=== PATIENT | male | born 1970 ===

== ENCOUNTER 2016-10-05 15:06 | Observation (INO) | payer MEDICAID ==
[2016-10-05 15:22] VITALS: BP 149/84; PULSE 65; RESP 16; TEMP 98.8; O2SAT 97
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
[2016-10-05 16:28] LABS: ADD MANUAL DIFF? NO
[2016-10-05 16:55] LABS: ALB/GLOB RATIO 1.3 (1.1-1.8); ALKALINE PHOSPHATASE 67 U/L (38-133); ALT/SGPT 42 U/L (7-56); AST/SGOT 52 U/L (15-59); BILIRUBIN,TOTAL 0.6 mg/dL (0.2-1.3); BLOOD UREA NITROGEN 19 mg/dL (7-21); CALCIUM 9.4 mg/dL (8.4-10.5); CARBON DIOXIDE 28 mmol/L (21-33); CHLORIDE 103 mmol/L (98-107); GFR AFRICAN-AMERICAN > 60; GLUCOSE,RANDOM 116 mg/dL (70-110); SODIUM 138 mmol/L (132-148); TOTAL PROTEIN 7.2 g/dL (5.8-8.3)
[2016-10-05 16:59] LABS: BASO # 0.03 K/mm3 (0.0-2.0); BASO % 0.5 % (0.0-3.0); EOS # 0.2 (0.0-0.7); EOS % 3.6 % (1.5-5.0); GRAN # 4.56 (1.4-6.5); GRAN % 70.8 % (50.0-68.0); HEMATOCRIT 41.6 % (42.0-52.0); LYMPH # 1.3 (1.2-3.4); LYMPH % 19.4 % (22.0-35.0); MEAN CELL VOLUME 83.7 fL (80.0-105.0); MEAN CORPUSCULAR HEMOGLOBIN 29.6 pg (25.0-35.0); MEAN CORPUSCULAR HGB CONC 35.3 g/dl (31.0-37.0); MEAN PLATELET VOLUME 10.6 fl (7.0-11.0); MONO # 0.4 (0.1-0.6); MONO % 5.7 % (1.0-6.0); PLATELET COUNT 205 10^3/uL (120.0-450.0); RED CELL DISTRIBUTION WIDTH 13.3 % (11.5-14.5); WHITE BLOOD COUNT 6.4 10^3/ul (4.5-11.0)
[2016-10-05 17:01] LABS: INR 1.11 (0.93-1.08); PARTIAL THROMBOPLASTIN TIME 27.3 Seconds (23.7-30.8)
[2016-10-05 17:07] LABS: TROPONIN I 0.01 ng/mL
--- NOTE | 2016-10-05 17:46 | CT ---
PROCEDURE: CT HEAD WITHOUT CONTRAST. HISTORY: +LOC COMPARISON: None availableThe. TECHNIQUE: Axial computed tomography images were obtained through the head/brain without intravenous contrast. Radiation dose: Total exam DLP = 869.39 mGy-cm. This CT exam was performed using one or more of the following dose reduction techniques: Automated exposure control, adjustment of the mA and/or kV according to patient size, and/or use of iterative reconstruction technique. FINDINGS: HEMORRHAGE: No acute parenchymal, subarachnoid or extra-axial hemorrhage. BRAIN: No mass effect or edema. No atrophy or chronic microvascular ischemic changes. VENTRICLES: There is mild asymmetry of the lateral ventricles left-sided which is slightly larger than the right felt to represent an anatomic variation. Ventricular and sulcal size are otherwise normal. CALVARIUM: No acute calvarial fractures. PARANASAL SINUSES: There are comminuted fractures of the nasal bones bilaterally likely chronic due to the relative lack of overlying soft tissue swelling. Nadir Visualized paranasal sinuses well-developed and currently well-aerated. No fluid levels seen to suggest acute sinusitis or hemorrhage. Minimal mucosal thickening seen within a few ethmoid air cells. Minor mucosal thickening also seen in the right and left maxillary antrum. MASTOID AIR CELLS: Unremarkable as visualized. No inflammatory changes. OTHER FINDINGS: Orbits and contents unremarkable. IMPRESSION: No acute intracranial hemorrhage.
--- NOTE | 2016-10-06 09:54 | CARD ---
APPROVED REPORT EKG Measurement Heart [id number] <Conclusion> Sinus bradycardia Otherwise normal ECG
== END 2016-10-05 19:42 | disposition home or self-care (01) ==
LOC: ED 15:06 → EROBSV 16:07
PROVIDERS: ADMIT Emergency Medicine; ATTEND Emergency Medicine
DX: F13.239 Sedative, hypnotic or anxiolytic dependence with withdrawal, unspecified (principal); R51 Headache; R55 Syncope and collapse
CPT/HCPCS: 70450; 80053; 80320; 80324; 80345; 80346; 80349; 80353; 80358; 80361; 83992; 84484; 85025; 85610; 85730; 93005; 99285; G0378

== ENCOUNTER 2017-01-10 09:11 | Emergency (ER) | payer MEDICAID ==
[2017-01-10 09:21] VITALS: TEMP 98; BMI 28.8
[2017-01-10] MEDS ORDERED: Sodium Chloride 0.9% 1,000 ML IV STA (09:36)
--- NOTE | 2017-01-10 09:40 | ED PDOC ---
Arrival/HPI - General Chief Complaint: Male Genitourinary Time Seen by Provider: 01/10/17 09:13 - History of Present Illness Narrative History of Present Illness (Text): 01/10/17 09:35 47 y/o M with PMHx of illicit substance abuse (heroin) presents for low back pain. Patient states that he is currently on parole after being released from [facility]. Patient uses heroin regularly and last used 2 days ago. Patient had to provide a clean urine so he decided to take water pills to flush out his urine. Patient took lisinopril 40 mg x 2 and HCTZ 25 mg x 4 two days ago. Towards the end of the day 2 days ago, pt started developing B/L low back pain. No radiation of pain. Pain feels like a cramp. Denies any trauma or heavy lifting. Patient denies having any dysuria, hematuria, abd pain, N/V/D/C, CP, SOB, F/C. Time/Duration: < week Symptom Onset: Sudden Symptom Course: Unchanged Quality: Tightness, Cramping Past Medical History - Provider Review Nursing Documentation Reviewed: Yes - Travel History Have you recently traveled outside [place] w/in the past 3 mons?: No - Infectious Disease Hx of Infectious Diseases: None - Cardiac Hx Cardiac Disorders: Yes Hx Hypertension: Yes - Pulmonary Hx Respiratory Disorders: No - Neurological Hx Neurological Disorder: No - HEENT Hx HEENT Disorder: No - Renal Hx Renal Disorder: No - Endocrine/Metabolic Hx Endocrine Disorders: No - Hematological/Oncological Hx Blood Disorders: No - Integumentary Hx Dermatological Disorder: No - Musculoskeletal/Rheumatological Hx Musculoskeletal Disorders: No - Gastrointestinal Hx Gastrointestinal Disorders: No - Genitourinary/Gynecological Hx Genitourinary Disorders: No - Psychiatric Hx Psychophysiologic Disorder: Yes Hx Anxiety: Yes Hx Bipolar Disorder: Yes Hx Depression: Yes Hx Substance Use: Yes - Anesthesia Hx Anesthesia: No Family/Social History - Physician Review Nursing Documentation Reviewed: Yes Family/Social History: Unknown Family HX Smoking Status: Current Some Days Smoker Hx Alcohol Use: Yes Hx Substance Use: Yes Substance used: heroin Allergies/Home Meds Allergies/Adverse Reactions: Allergies No Known Allergies Allergy (Verified 01/10/17 09:21) Home Medications: Home Meds Medication Instructions Recorded Confirmed Gabapentin [Neurontin] 300 mg PO TID 01/10/17 01/10/17 Risperidone [Risperdal] 1 mg PO DAILY 01/10/17 01/10/17 Review of Systems - Review of Systems Constitutional: Normal. absent: Fatigue, Fevers Eyes: Normal. absent: Vision Changes, Photophobia ENT: Normal. absent: Sore Throat, Rhinorrhea, Sinus Congestion Respiratory: Normal. absent: SOB, Cough, Wheezing Cardiovascular: Normal. absent: Chest Pain, Palpitations, Edema, Calf Pain Gastrointestinal: Normal. absent: Abdominal Pain, Constipation, Diarrhea, Nausea, Vomiting, Hematochezia, Hematemesis Genitourinary Male: Normal. absent: Dysuria, Frequency, Hematuria, Urinary Output Changes Musculoskeletal: Back Pain (low back pain ). absent: Arthralgias, Neck Pain, Joint Swelling Skin: Normal. absent: Rash, Pruritis, Skin Lesions, Laceration Neurological: Normal. absent: Headache, Dizziness, Focal Weakness Endocrine: Normal. absent: Diaphoresis, Polyuria, Polydipsia Hemo/Lymphatic: Normal. absent: Adenopathy, Easy Bleeding, Easy Bruising Physical Exam Vital Signs Reviewed: Yes Vital Signs Temp Pulse Resp BP Pulse Ox 01/10/17 09:20 98.0 F 72 19 128/92 H 100 Temperature: Afebrile Blood Pressure: Normal Pulse: Regular Respiratory Rate: Normal Appearance: Positive for: Well-Appearing, Non-Toxic, Comfortable Pain Distress: Mild Mental Status: Positive for: Alert and Oriented X 3 - Systems Exam Head: Present: Atraumatic, Normocephalic Extroacular Muscles: Present: EOMI Conjunctiva: Present: Normal Mouth: Present: Moist Mucous Membranes Respiratory/Chest: Present: Clear to Auscultation, Good Air Exchange. No: Respiratory Distress, Accessory Muscle Use, Wheezes, Rales, Rhonchi Cardiovascular: Present: Regular Rate and Rhythm, Normal S1, S2. No: Murmurs, Rub, Gallop, Muffled Abdomen: Present: Normal Bowel Sounds. No: Tenderness, Distention, Peritoneal Signs Back: Present: Paraspinal Tenderness (B/L lumbar ). No: CVA Tenderness, Midline Tenderness Upper Extremity: Present: Normal Inspection, NORMAL PULSES. No: Edema Lower Extremity: Present: Normal Inspection, NORMAL PULSES, Normal ROM. No: Edema, CALF TENDERNESS Neurological: Present: GCS=15, Speech Normal Skin: Present: Warm, Dry, Normal Color. No: Rashes Psychiatric: Present: Alert, Oriented x 3, Normal Insight, Normal Concentration Medical Decision Making ED Course and Treatment: 01/10/17 09:43 47 year old M presents for low back B/L after taking lisinopril 40 mg x 2 and HCTZ 25 mg x 4 Will check CBC, CMP, UA and UDS Patient will be given 1 L NS bolus - Lab Interpretations Lab Results: 01/10/17 09:45 01/10/17 10:00 Lab Results 01/10/17 10:30: Urine Color Yellow, Urine Appearance Clear, Urine pH 6.0, Ur Specific [place] 1.025, Urine Protein Negative, Urine Glucose (UA) Negative, Urine Ketones Trace H, Urine Blood Negative, Urine Nitrate Negative, Urine Bilirubin Negative, Urine Urobilinogen 0.2, Ur Leukocyte Esterase Negative 01/10/17 10:00: Sodium 134, Potassium 4.3, Chloride 97, Carbon Dioxide 25, Anion Gap 16, BUN 26 H, Creatinine 1.4, Est GFR ( Amer) > 60, Est GFR ( Non-Af Amer) 55, Random Glucose 133 H, Calcium 9.6, Total Bilirubin 0.5, AST 29 , ALT 35, Alkaline Phosphatase 93, Total Protein 7.4, Albumin 4.4, Globulin 3.0 , Albumin/Globulin Ratio 1.5 01/10/17 09:45: WBC 11.1 H D, RBC 5.89, Hgb 18.0, Hct 49.4, MCV 83.9, MCH 30.6, MCHC 36.4, RDW 13.3, Plt Count 253, MPV 10.8 I have reviewed the lab results: Yes Interpretation: All labs normal - Medication Orders Current Medication Orders: Discontinued Medications Sodium Chloride (Sodium Chloride 0.9%) 1,000 mls @ 999 mls/hr IV .Q1H1M STA Stop: 01/10/17 10:36 Last Admin: 01/10/17 09:48 Dose: 999 mls/hr Disposition/Present on Arrival - Present on Arrival Any Indicators Present on Arrival: No History of DVT/PE: No History of Uncontrolled Diabetes: No Urinary Catheter: No History of Decub. Ulcer: No History Surgical Site Infection Following: None - Disposition Have Diagnosis and Disposition been Completed?: Yes Diagnosis: Flank pain Disposition: HOME/ ROUTINE Disposition Time: 10:58 Patient Plan: Discharge Condition: GOOD Discharge Instructions (ExitCare): Flank Pain (ED) Additional Instructions: please follow up with your doctor/specialist. return to er with worsening symptoms or concerns. Referrals: [facility] [Outside] - Follow up with primary [facility] [Outside] - Follow up with primary Sim Phoenix MD [Staff Provider] - Follow up with primary Marylin Contreras MD [Primary Care Provider] - Follow up with primary Forms: [employer] [employer] [facility] ([place]rainian), WORK NOTE
[2017-01-10 10:02] LABS: MEAN CELL VOLUME 83.9 fl (80.0-105.0); MEAN CORPUSCULAR HEMOGLOBIN 30.6 pg (25.0-35.0); MEAN CORPUSCULAR HGB CONC 36.4 g/dl (31.0-37.0); MEAN PLATELET VOLUME 10.8 fl (7.0-11.0); RBC 5.89 10^6/uL (3.5-6.1); RED CELL DISTRIBUTION WIDTH 13.3 % (11.5-14.5); WHITE BLOOD COUNT 11.1 10^3/ul (4.5-11.0)
[2017-01-10 10:25] LABS: ALB/GLOB RATIO 1.5 (1.1-1.8); ALBUMIN 4.4 g/dL (3.0-4.8); ALT/SGPT 35 U/L (7-56); AST/SGOT 29 U/L (15-59); BLOOD UREA NITROGEN 26 mg/dL (7-21); CALCIUM 9.6 mg/dL (8.4-10.5); GFR AFRICAN-AMERICAN > 60; GFR NON-AFRICAN AMERICAN 55
[2017-01-10 10:49] LABS: URINE BILIRUBIN NEGATIVE (NEGATIVE); URINE BLOOD NEGATIVE (NEGATIVE); URINE GLUCOSE (UA) NEGATIVE (NEGATIVE); URINE LEUKOCYTE ESTERASE NEGATIVE Leu/uL (NEGATIVE); URINE NITRATE NEGATIVE (NEGATIVE); URINE PROTEIN NEGATIVE mg/dL (<30 mg/dL); URINE UROBILINOGEN 0.2 E.U./dL (<1 E.U./dL)
[2017-01-10 10:51] LABS: URINE APPEARANCE CLEAR (CLEAR); URINE COLOR YELLOW (YELLOW)
[2017-01-10 11:14] LABS: BARBITURATES, UR NEGATIVE (NEGATIVE); BENZODIAZEPINES, UR NEGATIVE (NEGATIVE); OPIATES, UR POSITIVE (NEGATIVE); PHENCYCLIDINE, UR NEGATIVE (NEGATIVE)
[2017-01-10 11:15] VITALS: BP 129/73; PULSE 76; RESP 18; O2SAT 98
== END 2017-01-10 11:50 | disposition home or self-care (01) ==
LOC: ED 09:11
DX: R10.9 Unspecified abdominal pain (principal)
CPT/HCPCS: 80053; 80324; 80345; 80346; 80349; 80353; 80358; 80361; 81003; 83992; 85027; 96360; 99284; J7040

== ENCOUNTER 2017-12-15 13:03 | Emergency (ER) | payer MEDICAID, OTHER ==
[2017-12-15 13:03] VITALS: BMI 28.8
--- NOTE | 2017-12-15 13:37 | ED PDOC ---
Arrival/HPI - General Chief Complaint: Substance Abuse Time Seen by Provider: 12/15/17 13:05 Historian: Patient - History of Present Illness Narrative History of Present Illness (Text): 12/15/17 13:36 47 year old male, whose PMH includes hypertension, asthma, and substance abuse, who presents to the emergency department complaining of dizziness s/p taking Percocet. Patient reports he had chronic lower back pain and took somebody else' s Percocet, begabn to drive and felt dizzy which caused him to puller through. Patient states he has never taken Percocet. Patient denies chest pain, shortness of breath, headache, nausea, vomiting, diarrhea, or other complaints. Time/Duration: Prior to Arrival Symptom Onset: Sudden Symptom Course: Unchanged Past Medical History - Provider Review Nursing Documentation Reviewed: Yes - Infectious Disease Hx of Infectious Diseases: None - Cardiac Hx Cardiac Disorders: Yes Hx Hypertension: Yes - Pulmonary Hx Respiratory Disorders: Yes Hx Asthma: Yes - Neurological Hx Neurological Disorder: No - HEENT Hx HEENT Disorder: No - Renal Hx Renal Disorder: No - Endocrine/Metabolic Hx Endocrine Disorders: No - Hematological/Oncological Hx Blood Disorders: No - Integumentary Hx Dermatological Disorder: No - Musculoskeletal/Rheumatological Hx Musculoskeletal Disorders: No - Gastrointestinal Hx Gastrointestinal Disorders: No - Genitourinary/Gynecological Hx Genitourinary Disorders: No - Psychiatric Hx Psychophysiologic Disorder: No Hx Substance Use: Yes - Anesthesia Hx Anesthesia: No Family/Social History - Physician Review Nursing Documentation Reviewed: Yes Family/Social History: Unknown Family HX Smoking Status: Current Some Days Smoker Hx Alcohol Use: Yes Hx Substance Use: Yes Substance used: heroin Allergies/Home Meds Allergies/Adverse Reactions: Allergies No Known Allergies Allergy (Verified 01/10/17 09:21) Home Medications: Home Meds Medication Instructions Recorded Confirmed Gabapentin [Neurontin] 300 mg PO TID 01/10/17 01/10/17 Risperidone [Risperdal] 1 mg PO DAILY 01/10/17 01/10/17 Review of Systems - Physician Review All systems were reviewed & negative as marked: Yes - Review of Systems Respiratory: absent: SOB Cardiovascular: absent: Chest Pain Neurological: Dizziness Physical Exam Vital Signs Reviewed: Yes Vital Signs Temp Pulse Resp BP Pulse Ox 12/15/17 14:43 98.6 F 82 18 132/78 98 12/15/17 13:03 98.5 F 106 H 19 152/109 H 91 L Temperature: Afebrile Blood Pressure: Hypertensive Pulse: Tachycardic Respiratory Rate: Normal Appearance: Positive for: Well-Appearing, Non-Toxic, Comfortable Pain Distress: None Mental Status: Positive for: Alert and Oriented X 3 - Systems Exam Head: Present: Atraumatic, Normocephalic Pupils: Present: PERRL Extroacular Muscles: Present: EOMI Conjunctiva: Present: Normal Respiratory/Chest: Present: Clear to Auscultation, Good Air Exchange. No: Respiratory Distress, Accessory Muscle Use, Wheezes, Decreased Breath Sounds, Rales, Retracting, Rhonchi Cardiovascular: Present: Regular Rate and Rhythm, Normal S1, S2. No: Murmurs Abdomen: Present: Normal Bowel Sounds. No: Tenderness, Distention, Peritoneal Signs, Rebound, Guarding Neurological: Present: GCS=15, CN II-XII Intact, Speech Normal Skin: Present: Warm, Dry, Normal Color. No: Rashes Psychiatric: Present: Alert, Oriented x 3, Normal Insight, Normal Concentration Medical Decision Making ED Course and Treatment: 12/15/17 Impression: 47 year old male with unremarkable physical exam complaining of dizziness s/p taking Percocet tablet from someone else. Plan: -- EKG -- Chest X-ray -- Labs -- Urinalysis -- Reassess and disposition Progress Notes: 12/15/17 14:20 Chest X-ray: Creator : Abigail Blair MD FINDINGS: LUNGS: The lungs are well inflated and clear. PLEURA: No significant pleural effusion identified, no pneumothorax apparent. CARDIOVASCULAR: Normal. OSSEOUS STRUCTURES: No significant abnormalities. VISUALIZED UPPER ABDOMEN: Normal. OTHER FINDINGS: None. IMPRESSION: No active pulmonary disease. 12/15/17 15:35 Reevaluation: On reevaluation the patient feels better and is in no acute distress. I have discussed the results and plan with the patient, who expresses understanding. Patient given the opportunity to ask question, all questions were answered and there is agreement with the plan to discharge the patient home. Patient is stable for discharge and was advised to not take prescribed medication of others. - Lab Interpretations Lab Results: 12/15/17 13:33 12/15/17 13:33 Lab Results 12/15/17 14:10: Urine Opiates Screen Positive H, Urine Methadone Screen Negative , Ur Barbiturates Screen Negative, Ur Phencyclidine Scrn Negative, Ur Amphetamines Screen Negative, U Benzodiazepines Scrn Negative, U Oth Cocaine Metabols Negative, U Cannabinoids Screen Negative 12/15/17 14:10: Urine Color Light yellow, Urine Appearance Clear, Urine pH 6.0, Ur Specific [place] 1.020, Urine Protein Negative, Urine Glucose (UA) Negative, Urine Ketones Negative, Urine Blood Negative, Urine Nitrate Negative, Urine Bilirubin Negative, Urine Urobilinogen 0.2, Ur Leukocyte Esterase Negative 12/15/17 13:33: Sodium 139, Potassium 4.0, Chloride 101, Carbon Dioxide 24, Anion Gap 18, BUN 20, Creatinine 0.9, Est GFR ( Amer) > 60, Est GFR (Non- Af Amer) > 60, Random Glucose 171 H, Calcium 8.4, Magnesium 2.1, Total Bilirubin 0.5, AST 38, ALT 69 H, Alkaline Phosphatase 68, Lactate Dehydrogenase 598, Total Creatine Kinase 302 H, CK-MB (CK-2) 2.1, CK-MB (CK-2) % Cancelled, Troponin I 0.03 D, Total Protein 7.3, Albumin 4.4, Globulin 2.9, Albumin/ Globulin Ratio 1.5 12/15/17 13:33: WBC 7.4 D, RBC 5.22, Hgb 15.5 D, Hct 43.3, MCV 83.0, MCH 29.7 , MCHC 35.8, RDW 13.6, Plt Count 186, MPV 10.4, Gran % 77.8 H, Lymph % (Auto) 14.1 L, [place] % (Auto) 5.4, Eos % (Auto) 2.4, Baso % (Auto) 0.3, Gran # 5.76, Lymph # (Auto) 1.0 L, [place] # (Auto) 0.4, Eos # (Auto) 0.2, Baso # (Auto) 0.02 I have reviewed the lab results: Yes - RAD Interpretation Radiology Orders: 12/15/17 13:35 CHEST PORTABLE [RAD] Stat Emery Wheel Molder: Radiologist - EKG Interpretation Interpreted by ED Physician: Yes Type: 12 lead EKG - Scribe Statement The provider has reviewed the documentation as recorded by the Nayan Chen Provider Scribe Attestation: All medical record entries made by the Scribe were at my direction and personally dictated by me. I have reviewed the chart and agree that the record accurately reflects my personal performance of the history, physical exam, medical decision making, and the department course for this patient. I have also personally directed, reviewed, and agree with the discharge instructions and disposition. Disposition/Present on Arrival - Present on Arrival Any Indicators Present on Arrival: Yes History of DVT/PE: No History of Uncontrolled Diabetes: No Urinary Catheter: No History of Decub. Ulcer: No History Surgical Site Infection Following: None - Disposition Have Diagnosis and Disposition been Completed?: No Diagnosis: Dizziness Disposition: HOME/ ROUTINE Disposition Time: 14:00 Condition: GOOD Discharge Instructions (ExitCare): Dizziness, Nonvertigo, (DC) Additional Instructions: MARY YANEZ, thank you for letting us take care of you today. The emergency medical care you received today was directed at your acute symptoms. If you were prescribed any medication, please fill it and take as directed. It may take several days for your symptoms to resolve. Return to the Emergency Department if your symptoms worsen, do not improve, or if you have any other problems. Please contact your doctor or call one of the physicians/clinics you have been referred to that are listed on the Patient Visit Information form that is included in your discharge packet. Bring any paperwork you were given at discharge with you along with any medications you are taking to your follow up visit. Our treatment cannot replace ongoing medical care by a primary care provider outside of the emergency department. Thank you for allowing the [facility] team to be part of your care today. Do NOT take any medication that is not prescribed to you. Follow up with the clinic or your primary care doctor this week for re- evaluation and further management. Referrals: [facility] [Outside] - Follow up with primary Ellen Mortensen MD [Staff Provider] - Follow up with primary Forms: [employer] (Slovak)
[2017-12-15 13:53] LABS: BASO # 0.02 K/mm3 (0.0-2.0); BASO % 0.3 % (0.0-3.0); EOS # 0.2 (0.0-0.7); EOS % 2.4 % (1.5-5.0); GRAN # 5.76 (1.4-6.5); GRAN % 77.8 % (50.0-68.0); HEMOGLOBIN 15.5 g/dL (14.0-18.0); LYMPH % 14.1 % (22.0-35.0); MEAN CORPUSCULAR HEMOGLOBIN 29.7 pg (25.0-35.0); MEAN CORPUSCULAR HGB CONC 35.8 g/dl (31.0-37.0); MEAN PLATELET VOLUME 10.4 fl (7.0-11.0); MONO # 0.4 (0.1-0.6); MONO % 5.4 % (1.0-6.0); RBC 5.22 10^6/uL (3.5-6.1); RED CELL DISTRIBUTION WIDTH 13.6 % (11.5-14.5); WHITE BLOOD COUNT 7.4 10^3/ul (4.5-11.0)
[2017-12-15 14:03] LABS: ALB/GLOB RATIO 1.5 (1.1-1.8); ALBUMIN 4.4 g/dL (3.0-4.8); CALCIUM 8.4 mg/dL (8.4-10.5); GFR AFRICAN-AMERICAN > 60; GFR NON-AFRICAN AMERICAN > 60
--- NOTE | 2017-12-15 14:17 | RAD ---
Date of service: 12/15/2017 HISTORY: r/o infiltrate COMPARISON: No prior. FINDINGS: LUNGS: The lungs are well inflated and clear. PLEURA: No significant pleural effusion identified, no pneumothorax apparent. CARDIOVASCULAR: Normal. OSSEOUS STRUCTURES: No significant abnormalities. VISUALIZED UPPER ABDOMEN: Normal. OTHER FINDINGS: None. IMPRESSION: No active pulmonary disease.
[2017-12-15 14:21] LABS: TROPONIN I 0.03 ng/mL
[2017-12-15 14:24] LABS: ALT/SGPT 69 U/L (7-56); AST/SGOT 38 U/L (17-59); BLOOD UREA NITROGEN 20 mg/dL (7-21); CK-MB 2.1 ng/mL (0.0-3.6)
[2017-12-15 14:33] LABS: URINE APPEARANCE CLEAR (CLEAR); URINE BILIRUBIN NEGATIVE (NEGATIVE); URINE BLOOD NEGATIVE (NEGATIVE); URINE COLOR LIGHT YELLOW (YELLOW); URINE GLUCOSE (UA) NEGATIVE (NEGATIVE); URINE LEUKOCYTE ESTERASE NEGATIVE Leu/uL (NEGATIVE); URINE PROTEIN NEGATIVE mg/dL (<30 mg/dL); URINE UROBILINOGEN 0.2 E.U./dL (<1 E.U./dL)
[2017-12-15 14:44] VITALS: BP 132/78; PULSE 82; RESP 18; TEMP 98.6; O2SAT 98
[2017-12-15 14:52] LABS: BARBITURATES, UR NEGATIVE (NEGATIVE); BENZODIAZEPINES, UR NEGATIVE (NEGATIVE); OPIATES, UR POSITIVE (NEGATIVE); PHENCYCLIDINE, UR NEGATIVE (NEGATIVE)
--- NOTE | 2017-12-16 09:22 | CARD ---
APPROVED REPORT Date of service: 12/15/2017 EKG Measurement Heart [id number] <Conclusion> Normal sinus rhythm Normal ECG
== END 2017-12-15 14:30 | disposition home or self-care (01) ==
LOC: ED 13:03
DX: R42 Dizziness and giddiness (principal); I10 Essential (primary) hypertension